=== PATIENT | male | born 1970 | race Caucasian/White ===

== ENCOUNTER 2017-08-11 12:17 | Emergency (ER) | payer OTHER ==
[2017-08-11 12:22] VITALS: BP 125/82
--- NOTE | 2017-08-11 12:40 | EDPHY ---
H & P Stated Complaint: Laceration on left hand Time Seen by Provider: 08/11/17 12:35 HPI/ROS: HPI: This is a 46-year-old male who presents with Chief Complaint: Left hand puncture injury Location: Left hand Quality: Puncture injury Duration: Prior to arrival Signs and Symptoms: + bleeding, no radiation, no numbness, no weakness, no tingling, no decreased range of motion, no swelling, no pain, no fever Timing: Acute Severity: Mild Context: Patient is right-hand dominant, presents with accidentally dropping a piece of glass onto the top of his left hand. He reports there was a piece of glass wedged into his hand that he pulled out. He believes that he pulled entire piece of glass out as it was intact. Immediately after pulling the glass out, the area started to bleed. He applied direct pressure but was unable to get the area to stop. He drove himself to the emergency room for further evaluation. Reports his tetanus is current. Denies paresthesias, weakness, skin color changes. Modifying Factors: Direct pressure, no relief Comment: ROS: see HPI Constitutional: No fever, no chills, no weight loss Eyes: No blurred vision Respiratory: No shortness of breath, no cough Cardiovascular: No chest pain Gastrointestinal: No nausea, no vomiting no diarrhea Genitourinary: No dysuria Extremities: No myalgias Neurologic: No weakness, no numbness Skin: No rashes Hematologic: No bruising, no bleeding MEDICAL/SURGICAL/SOCIAL HISTORY: Medical history: Anxiety, GERD. Surgical history: Denies Social history: Employed. CONSTITUTIONAL: Polite and cooperative middle-aged white male, awake and alert , no obvious distress EXTREMITIES: 2/2 pulses, strength 5/5, left hand small s1/8 inch superficial puncture site noted at the anatomic snuffbox. No scaphoid tenderness. DIP/PIP/ MCP flexion/extension intact with good light touch sensation. no deformities, no clubbing, no cyanosis or edema. NEUROLOGICAL: no focal neuro deficits. GCS 15. Light touch sensation intact. SKIN: Warm and dry, no erythema. no rash. Good capillary refill. Source: Patient Exam Limitations: No limitations - Personal History Current Tetanus/Diphtheria Vaccine: Yes - Medical/Surgical History Hx Asthma: No Hx Chronic Respiratory Disease: No Hx Diabetes: No Hx Cardiac Disease: No Hx Renal Disease: No Hx Cirrhosis: No Hx Alcoholism: No Other PMH: anxiety, GERD - Social History Smoking Status: Former smoker Constitutional: Initial Vital Signs Temperature (C) 36.5 C 08/11/17 12:19 Heart Rate 93 08/11/17 12:19 Respiratory Rate 16 08/11/17 12:19 Blood Pressure 125/82 H 08/11/17 12:19 O2 Sat (%) 96 08/11/17 12:19 O2 Delivery Mode Room Air Allergies/Adverse Reactions: No Known Allergies Allergy (Unverified 08/11/17 12:22) Home Medications: Medication Instructions Recorded Prilosec 08/11/17 Medical Decision Making ED Course/Re-evaluation: 2 mL of 0.5% bupivacaine with epinephrine placed for local anesthesia. Cleaned and irrigated copiously. Xeroform and bulky dressing applied. Tetanus is current. No indication for antibiotics or x-ray imaging. Sutures are not indicated. No signs of neurovascular compromise/tenting of skin/compartment syndrome/ extremities and joints examined above and below area of concern and are neurovascularly intact/tendon injury/nerve injury. This patient was seen under the supervision of my secondary supervising physician. I evaluated care for this patient independently. Discussed this patient with Dr. Kincaid. Differential Diagnosis: Differential diagnosis includes but is not limited to tendon injury, nerve injury, foreign body, scaphoid fracture. Departure - Departure Disposition: Home, Routine, Self-Care Clinical Impression: Puncture wound of left hand without complication Qualifiers: Encounter type: initial encounter Qualified Code(s): S61.432A - Puncture wound without foreign body of left hand, initial encounter Condition: Good Instructions: Puncture Wound (ED) Additional Instructions: Keep the dressing dry and in place for 48 hours. After 48 hours, you may remove the dressing; wash the site daily with mild soap and water; then pat dry. Then apply topical antibiotic ointment daily and clean sterile dressing until fully healed. Take Tylenol 650 mg every 4 hours and/or Ibuprofen 600 mg every 8 hours with food as needed for pain. Apply ice for 30 minutes at a time; 2-3 times per day for the next 1-2 days. Return to the ER immediately if you experience redness, red streaks, have fevers /chills, flu like symptoms, limited range of motion, or any other symptoms that concern you. Referrals: Kamini Shankar MD [Medical Doctor] - As per Instructions
== END 2017-08-11 12:50 | disposition home or self-care (01) ==
DX: S61.432A Puncture wound without foreign body of left hand, initial encounter (principal); Z87.891 Personal history of nicotine dependence; W25.XXXA Contact with sharp glass, initial encounter